=== PATIENT | female | born 1940 | race Caucasian/White ===

== ENCOUNTER → 2018-03-07 11:49 | Outpatient (CLI) | payer MEDICARE, SELFPAY ==
[2018-03-07 12:47] LABS: Add Manual Diff / Slide Review NO; Basophils Percent Auto 0.8 % (0-2); Hematocrit 38.3 % (36-46); Hemoglobin 13.1 g/dL (12.0-16.0); Lymphocytes Percent Auto 9.6 % (25-40); Mean Corpuscular HGB Conc 34.2 % (30-36); Mean Corpuscular Hemoglobin 33.1 PG (26-34); Mean Corpuscular Volume 96.8 fL (80-100); Monocytes Percent Auto 6.6 % (3-14); Neutrophils Absolute Auto 4200 /uL (3000-5900); Platelet Count 122 X10^3/uL (150-400); Red Blood Cell Count 3.96 X10^6/uL (4.0-5.2); Red Cell Distribution Width 13.8 % (11.6-14.8); White Blood Cell Count 5.2 X10^3/uL (4.5-11.0)
[2018-03-07 13:32] LABS: Alanine Aminotransferase 33 IU/L (9-52); Albumin 4.3 g/dL (3.5-5.0); Alkaline Phosphatase 53 U/L (38-126); Aspartate Aminotransferase 27 IU/L (14-36); BUN Creatinine Ratio 27.5 (6-22); Bilirubin Total 1.2 mg/dL (0.2-1.3); Blood Urea Nitrogen 22 mg/dL (7-17); Calcium 9.4 mg/dL (8.4-10.2); Carbon Dioxide 24 mmol/L (22-32); Chloride 107 mmol/L (98-107); Estimated Glomerular Filt Rate > 60.0 mL/min (>60); Globulin 2.2 g/dL (1.7-4.1); Glucose 90 mg/dL (80-110); HEMOLYSIS < 15 (0-50); Potassium 4.3 mmol/L (3.4-5.1); Sodium 143 mmol/L (137-145); Total Protein 6.5 g/dL (6.3-8.2)
[2018-03-07 14:01] LABS: TSH w/ Reflex to FT4 2.61 uIU/mL (0.47-4.68)
== END ==
PROVIDERS: Family Provider Family Medicine; PCP Family Medicine; Visit Provider Family Medicine
DX: E78.00 Pure hypercholesterolemia, unspecified (principal)
CPT/HCPCS: 36415; 80053; 84443; 85025

== ENCOUNTER → 2018-03-20 13:45 | Outpatient (CLI) | payer MEDICARE, SELFPAY ==
--- NOTE | 2018-03-20 13:47 | DI.RAD.S_ITS ---
PROCEDURE: XR HIP W PEL IF DONE LT 2V INDICATIONS: acute left hip pain TECHNIQUE: 3 views of the left hip were acquired. COMPARISON: None. FINDINGS: Bones: No fractures or dislocations. No suspicious bony lesions. The visualized pelvic ring appears intact. Prior bilateral total hip arthroplasties without evidence of device loosening or disruption bilaterally Soft tissues: No suspicious soft tissue calcifications or masses. IMPRESSION: Source of new left-sided hip pain is not seen. Prior bilateral total hip arthroplasties. Chronic degenerative changes along the visualized small portion of the lumbosacral spine included on this study are moderately severe to severe. Dictated by: Prem Mckeon M.D. on 03/20/2018 at 15:03 Approved by: Prem Mckeon M.D. on 03/20/2018 at 15:04
== END ==
PROVIDERS: Family Provider Family Medicine; PCP Family Medicine; Visit Provider Family Medicine
DX: M25.552 Pain in left hip (principal); Z96.643 Presence of artificial hip joint, bilateral; M51.37 Other intervertebral disc degeneration, lumbosacral region
CPT/HCPCS: 73502

== ENCOUNTER → 2018-03-23 16:38 | Outpatient (CLI) | payer MEDICARE, SELFPAY ==
--- NOTE | 2018-03-23 16:42 | DI.MRI.S_ITS ---
PROCEDURE: MR CERVICAL SPINE WO CON INDICATIONS: neck pain and left hand weakness TECHNIQUE: Noncontrast sagittal T1 spin echo and T2 fast spin echo, sagittal STIR, foraminal oblique sagittal T2 fast spin echo, and axial gradient echo or T2 fast spin echo through the cervical spine. COMPARISON: None. FINDINGS: Image quality: Excellent. Alignment and Curvature: There is mild straightening of normal cervical curvature. There is trace anterolisthesis of C3 on C4, C4 on C5-C7 on T1, T1 and T2, T2 on T3, trace retrolisthesis of C5 on C6. Bone Marrow: Marrow demonstrates normal overall signal. Spinal Cord: Visualized spinal cord has normal size and signal. No cerebellar tonsillar herniation. Paraspinous Soft Tissues: No paravertebral masses. Prevertebral soft tissues are normal in thickness. Mucous retention cyst versus followup is present within the left maxillary sinus. Discs: Moderate desiccation is present throughout the cervical spine. C2-C3: Minimal disc bulge without spinal stenosis. Minimal left foraminal narrowing with uncovertebral hypertrophy. C3-C4: Mild disc bulge with minimal spinal stenosis. Moderate left and minimal to mild right foraminal narrowing with uncovertebral hypertrophy. C4-C5: Mild disc bulge mild spinal stenosis. Moderate bilateral foraminal narrowing with uncovertebral hypertrophy. C5-C6: Mild disc bulge with moderate spinal stenosis. Severe left and [id number] right foraminal narrowing with uncovertebral hypertrophy. C6-C7: Mild disc bulge with mild spinal stenosis. Minimal to mild left and mild right foraminal narrowing with uncovertebral hypertrophy. C7-T1: Mild disc bulge with minimal spinal stenosis. Mild bilateral foraminal narrowing with uncovertebral hypertrophy. IMPRESSION: 1. Multilevel disc bulges. 2. Multilevel spinal stenosis, moderate at C5-6 secondary to disc bulge. 3. Multilevel foraminal narrowing severe at C5-6 secondary to uncovertebral arthropathy. Dictated by: Ernestina Fowler M.D. on 03/26/2018 at 8:16 Approved by: Ernestina Fowler M.D. on 03/26/2018 at 8:32
--- NOTE | 2018-03-23 16:42 | DI.MRI.S_ITS ---
PROCEDURE: MR LUMBAR SPINE WO CON INDICATIONS: leg weekness and low back pain TECHNIQUE: Noncontrast sagittal T1 spin echo and T2 fast echo, sagittal STIR, axial T1 and T2 fast spin echo through the lumbar spine. In cases with scoliosis, additional coronal T2 fast spin echo may be performed. COMPARISON: [facility], , L-SPINE WITHOUT CONTRAST, 04/11/2008, 7:53. FINDINGS: Image quality: Excellent. Alignment and Curvature: There is straightening of normal lumbar curvature. There is trace retrolisthesis of L1 on L2, L4 and L5, trace anterolisthesis of L2 on L3. Bone Marrow: Marrow is of normal overall signal. No acute vertebral body compression fractures. Mild reactive changes are present at L2-3. Spinal Cord: Conus medullaris terminates at the L1 level. Visualized cord demonstrates normal signal and size. Paraspinous Soft Tissues: No paravertebral masses. Discs: Severe desiccation is present at T12-L1, L3-4, L4-5, L5-S1, moderate to severe throughout the remainder of the lumbar spine. L1-L2: Mild disc bulge with moderate spinal stenosis. Mild to moderate bilateral foraminal narrowing with facet and ligamentum flavum hypertrophy. L2-L3: Mild disc bulge with mild spinal stenosis. Severe right and mild to moderate left foraminal narrowing with facet and ligamentum flavum hypertrophy. L3-L4: Mild disc bulge with mild to moderate spinal stenosis. Moderate bilateral foraminal narrowing with facet and ligamentum flavum hypertrophy. L4-L5: Mild disc bulge including a right foraminal component which compromises the right lateral recess. There is superior bilateral foraminal narrowing ligamentum hypertrophy. No nerve root flattening. L5-S1: Mild disc bulge with mild spinal stenosis. There is severe bilateral foraminal narrowing, left greater than right with minimal flattening noted on the left. Facet hypertrophy is present. IMPRESSION: 1. Multilevel degenerative changes demonstrate interval progression compared to prior exam. 2. Mild to moderate spinal stenosis most prominent at L1-2 secondary to disc bulge with contributing effect of prominent right facet/ligamentum flavum arthropathy. 3. Significant multilevel foraminal narrowing most severe at L2-3 and L5-S1 with minimal flattening noted at L5-S1. Foraminal narrowing is secondary to facet/ligamentum flavum arthropathy. Dictated by: Ernestina Fowler M.D. on 03/26/2018 at 8:36 Approved by: Ernestina Fowler M.D. on 03/26/2018 at 8:52
== END ==
PROVIDERS: Family Provider Family Medicine; PCP Family Medicine; Visit Provider Family Medicine
DX: R29.898 Other symptoms and signs involving the musculoskeletal system (principal); I73.9 Peripheral vascular disease, unspecified; M54.2 Cervicalgia
CPT/HCPCS: 72141; 72148

== ENCOUNTER → 2020-05-11 12:20 | Outpatient (CLI) | payer MEDICARE, SELFPAY ==
[2020-05-11 13:55] LABS: Add Manual Diff / Slide Review NO; Basophils Absolute Auto 0 /uL (0-100); Basophils Percent Auto 0.7 % (0-2); Eosinophils Absolute Auto 0 /uL (0-450); Eosinophils Percent Auto 0.7 % (2-4); Hematocrit 39.4 % (36-46); Lymphocytes Absolute Auto 500 /uL (1100-4500); Lymphocytes Percent Auto 6.9 % (25-40); Mean Corpuscular HGB Conc 32.9 % (30-36); Mean Corpuscular Hemoglobin 32.1 PG (26-34); Mean Corpuscular Volume 97.6 fL (80-100); Monocytes Absolute Auto 500 /uL (0-900); Neutrophils Absolute Auto 5500 /uL (1500-7000); Neutrophils Percent Auto 84.7 % (50-75); Platelet Count 151 X10^3/uL (150-400); Red Blood Cell Count 4.04 X10^6/uL (4.0-5.2); Red Cell Distribution Width 13.9 % (11.6-14.8); White Blood Cell Count 6.5 X10^3/uL (4.5-11.0)
[2020-05-11 14:14] LABS: Erythrocyte Sedimentation Rate 7 MM/HR (0-20)
[2020-05-11 14:43] LABS: Alanine Aminotransferase 21 IU/L (<35); Albumin 4.7 g/dL (3.5-5.0); Alkaline Phosphatase 61 U/L (38-126); Aspartate Aminotransferase 32 IU/L (14-36); BUN Creatinine Ratio 23.5 (6-22); Bilirubin Total 1.3 mg/dL (0.2-1.3); Blood Urea Nitrogen 19 mg/dL (7-17); Calcium 9.9 mg/dL (8.4-10.2); Carbon Dioxide 26 mmol/L (22-32); Chloride 105 mmol/L (98-107); Estimated Glomerular Filt Rate > 60.0 mL/min (>60); Globulin 2.3 g/dL (1.7-4.1); Glucose 93 mg/dL (80-110); HEMOLYSIS < 15 (0-50); Potassium 4.4 mmol/L (3.4-5.1); Sodium 138 mmol/L (137-145)
[2020-05-11 15:06] LABS: TSH w/ Reflex to FT4 2.95 uIU/mL (0.47-4.68)
[2020-05-11 15:25] LABS: Vitamin B12 916 pg/mL (239-931)
== END ==
PROVIDERS: Family Provider Family Medicine; PCP Family Medicine; Referring Provider Family Medicine; Visit Provider Family Medicine
DX: M48.00 Spinal stenosis, site unspecified (principal); R26.9 Unspecified abnormalities of gait and mobility
CPT/HCPCS: 80053; 82607; 84443; 85025; 85651

== ENCOUNTER → 2020-05-21 10:55 | Outpatient (CLI) | payer MEDICARE, SELFPAY ==
--- NOTE | 2020-05-21 | DI.MRI.S_ITS ---
PROCEDURE: MR HEAD/BRAIN WO/W CON INDICATIONS: Polyneuropathy, unspecified TECHNIQUE: Noncontrast axial T1 spin echo, axial T2 fast spin echo, sagittal and axial FLAIR, coronal T2 fast spin echo, axial gradient echo, axial diffusion and ADC through the brain. After the administration of contrast, axial and coronal T1 spin echo with fat saturation through the brain. COMPARISON: [facility], , STROKE PROTOCOL, 01/04/2013, 13:48. FINDINGS: Image quality: Excellent. CSF spaces: Basal cisterns are patent. No extra-axial fluid collections. Ventricles are enlarged, greater than expected for age, and increased from the prior examination.. Brain: No midline shift. No intracranial bleeds or masses. No abnormal intracranial enhancement. There is cerebral volume loss for age. There is periventricular white matter chronic small vessel ischemic change. The brainstem appears normal. Diffusion-weighted images demonstrate no acute ischemic insults. No chronic ischemic insults. Normal intravascular flow voids are present. Skull and face: Calvarial marrow is normal in signal. Orbits appear normal. Sinuses: Sinuses and mastoids appear clear. IMPRESSION: 1. Volume loss and small vessel ischemic disease. 2. Ventricular enlargement, which is greater than expected for age, and has increased compared to 01/04/2013. Findings may represent communicating hydrocephalus. Nuclear medicine cisternogram could be performed for further assessment, if clinically indicated. 3. No acute process. No recent infarct. Dictated by: Jovita Su M.D. on 05/21/2020 at 11:43 Approved by: Jovita Su M.D. on 05/21/2020 at 11:46
== END ==
PROVIDERS: Family Provider Family Medicine; PCP Family Medicine; Referring Provider Family Medicine; Visit Provider Family Medicine
DX: G62.9 Polyneuropathy, unspecified (principal)
CPT/HCPCS: 70553

== ENCOUNTER 2020-09-14 11:44 | Emergency (ER) | payer MEDICARE, SELFPAY ==
[2020-09-14 11:59] VITALS: BP 174/84; PULSE 78; RESP 15; TEMP 36.4; O2SAT 100; BMI 20.9
== END 2020-09-14 13:08 | disposition left against medical advice (07) ==
PROVIDERS: Emergency Provider Emergency Medicine; Family Provider Family Medicine; PCP Family Medicine
CPT/HCPCS: 99281

== ENCOUNTER → 2020-11-19 10:09 | Outpatient (CLI) | payer MEDICARE, SELFPAY ==
--- NOTE | 2020-11-19 | DI.MRI.S_ITS ---
PROCEDURE: MR LUMBAR SPINE WO CON INDICATIONS: IMPAIRED GAIT AND MOBILITY TECHNIQUE: Noncontrast sagittal T1 spin echo and T2 fast echo, sagittal STIR, axial T1 and T2 fast spin echo through the lumbar spine. In cases with scoliosis, additional coronal T2 fast spin echo may be performed. COMPARISON: [facility], MR, MR LUMBAR SPINE WO CON, 03/23/2018, 17:22. FINDINGS: Image quality: Excellent. Alignment and Curvature: Straightening of the usual lumbar lordosis similar to the prior study. Anterolisthesis of L2 on L3 measuring 5 mm and retrolisthesis of L4 on L5 measuring 3 mm is also unchanged. Vertebral body heights maintained. Bone Marrow: No suspicious focal marrow signal abnormality. Extensive degenerative signal changes along the endplates including mild marrow edema at a few levels, a potential source of nonradicular axial back pain. Spinal Cord: Normal position and appearance of the conus. Regional Soft Tissues: Fatty atrophy of the paraspinous musculature. No acute signal abnormality in the regional soft tissues. T12-L1: Posterior osteophytic ridging and diffuse disc bulge flattens the ventral thecal sac with mild displacement of the descending right L1 nerve roots within the right subarticular zone. Foraminal components of the disc bulge contribute to mild neural foraminal narrowing on the right in conjunction with facet hypertrophy. L1-L2: Diffuse disc bulge and a superimposed broad-based posterior disc protrusion flatten and indent the ventral thecal sac. Disc material displaces the descending L2 nerve roots within both subarticular zones. Foraminal components of the disc bulge contribute to mild bilateral neural foraminal stenosis in conjunction with facet hypertrophy and buckling of the ligamentum flavum. L2-L3: There is moderate spinal canal stenosis due to a combination of diffuse disc bulge, superimposed disc extrusion, posterior osteophytic ridging of the endplates, facet hypertrophy, and buckling of the ligamentum flavum. There is displacement of the descending L3 nerve roots within both subarticular zones. Moderate left and mild right neural foraminal stenosis is present due to these factors. L3-L4: Posterior osteophytic ridging of the endplates flattens the ventral thecal sac. Buckling of the ligamentum flavum and facet hypertrophy further contribute to overall mild spinal canal stenosis. These factors contribute to moderate left and mild right neural foraminal narrowing also. L4-L5: Moderate spinal canal and severe subarticular zone stenosis due to a combination of diffuse disc bulge, superimposed broad-based posterior disc protrusion, posterior osteophytic ridging of the endplates, bulky facet hypertrophy, and buckling of the ligamentum flavum. There is probable impingement of the descending L5 nerve roots within both subarticular zones (series 6, image 27). Foraminal components of the disc bulge contribute to mild-moderate neural foraminal stenosis bilaterally in conjunction with facet hypertrophy. L5-S1: Diffuse disc bulge and a superimposed broad-based posterior disc protrusion, with disc material displacing the descending S1 nerve roots in both subarticular zones. Bulky facet hypertrophy further contributes to moderate to severe subarticular zone stenosis. Left laminotomy changes. Moderate right and moderate-severe left neural foraminal stenosis with flattening of the exiting left L5 nerve root in the foramen. IMPRESSION: Extensive multifactorial multilevel degenerative changes as described above, including areas of moderate to severe subarticular and neural foraminal stenosis with suspected nerve root impingement at multiple locations. Correlate for any corresponding radicular symptoms. Overall, the findings have not mildly progressed at each level when compared with 03/23/2018 exam. Dictated by: Nuno Evans M.D. on 11/19/2020 at 11:17 Approved by: Nuno Evans M.D. on 11/19/2020 at 11:22
== END ==
PROVIDERS: Family Provider Family Medicine; PCP Family Medicine; Referring Provider Psychiatry & Neurology Neurology; Visit Provider Internal Medicine Endocrinology, Diabetes & Metabolism
DX: R26.89 Other abnormalities of gait and mobility (principal); R39.15 Urgency of urination; M47.816 Spondylosis without myelopathy or radiculopathy, lumbar region; M47.817 Spondylosis without myelopathy or radiculopathy, lumbosacral region; M48.061 Spinal stenosis, lumbar region without neurogenic claudication; M48.07 Spinal stenosis, lumbosacral region; Z98.890 Other specified postprocedural states
CPT/HCPCS: 72148

== ENCOUNTER → 2020-11-27 10:52 | Outpatient (CLI) | payer MEDICARE, SELFPAY ==
[2020-11-27 12:07] LABS: Add Manual Diff / Slide Review NO; Basophils Absolute Auto 0 /uL (0-100); Eosinophils Absolute Auto 0 /uL (0-450); Eosinophils Percent Auto 0.6 % (2-4); Hematocrit 37.6 % (36-46); Hemoglobin 12.7 g/dL (12.0-16.0); Lymphocytes Absolute Auto 600 /uL (1100-4500); Mean Corpuscular HGB Conc 33.7 % (30-36); Mean Corpuscular Hemoglobin 32.6 PG (26-34); Mean Corpuscular Volume 96.8 fL (80-100); Monocytes Absolute Auto 400 /uL (0-900); Neutrophils Absolute Auto 4100 /uL (1500-7000); Neutrophils Percent Auto 79.4 % (50-75); Platelet Count 131 X10^3/uL (150-400); Red Blood Cell Count 3.89 X10^6/uL (4.0-5.2); Red Cell Distribution Width 13.4 % (11.6-14.8); White Blood Cell Count 5.2 X10^3/uL (4.5-11.0)
== END ==
PROVIDERS: Family Provider Family Medicine; PCP Family Medicine; Referring Provider Family Medicine; Visit Provider Family Medicine
DX: D72.9 Disorder of white blood cells, unspecified (principal)
CPT/HCPCS: 36415; 85025

== ENCOUNTER → 2020-12-21 07:49 | Outpatient (CLI) | payer MEDICARE, SELFPAY ==
--- NOTE | 2020-12-21 07:51 | DI.US.S_ITS ---
PROCEDURE: US ABDOMEN COMPLETE INDICATIONS: IMMUNE THROMBOCYTOPENIA PURPURA TECHNIQUE: Real-time scanning was performed of the abdominal and retroperitoneal organs, with image documentation. COMPARISON: CT, ABDOMEN/PELVIS WITH CONTRAST, 10/01/2010, 18:21. CT, ABDOMEN/PELVIS WITH CONTRAST, 12/27/2010, 12:23. FINDINGS: Liver: Liver is normal in size and homogeneous in echotexture. Gallbladder: No gallstones identified. Normal gallbladder wall. No pericholecystic fluid. Negative sonographic Jackson sign. Biliary ducts: Intrahepatic bile ducts are non-dilated. Extrahepatic bile duct caliber measures 3.8 mm. Normal is 6-7 mm or less in diameter, or 10 mm or less post-cholecystectomy. Pancreas: Visualized portions of the pancreas are sonographically normal. Spleen: Spleen is normal in size and homogeneous in echotexture. Kidneys: Kidneys are normal in size and echotexture. Right kidney measures 9.7 cm long; left kidney measures 10 cm long. No hydronephrosis or nephrolithiasis. Solitary, rounded echogenic mass involves the mid pole of the right kidney measuring 10 mm. Aorta: Visualized aorta is normal in caliber at less than 3 cm. Iliacs: Proximal common iliac arteries are normal in caliber at less than 2.5 cm. IVC: Intrahepatic inferior vena cava is patent. Miscellaneous: No free abdominal fluid. IMPRESSION: 1. No source for Immune thrombocytopenia identified. 2. 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 Dictated by: Dusty Smith A Interpreted: Prem Mckeon MD on 12/21/2020 at 9:01 Transcribed by: ORLY on 12/21/2020 at 9:21 Approved by: Prem Mckeon M.D. on 12/21/2020 at 10:57
== END ==
PROVIDERS: Family Provider Family Medicine; PCP Family Medicine; Referring Provider Hospitalist; Visit Provider Hospitalist
DX: D69.3 Immune thrombocytopenic purpura (principal)
CPT/HCPCS: 76700

== ENCOUNTER → 2020-12-24 12:47 | Outpatient (CLI) | payer MEDICARE, SELFPAY ==
[2020-12-24 13:43] LABS: Platelet Count 96 X10^3/uL (150-400)
[2020-12-24 14:00] LABS: Add Manual Diff / Slide Review NO; Basophils Absolute Auto 0 /uL (0-100); Basophils Percent Auto 0.7 % (0-2); Eosinophils Absolute Auto 0 /uL (0-450); Eosinophils Percent Auto 0.4 % (2-4); Hematocrit 39.5 % (36-46); Hemoglobin 13.3 g/dL (12.0-16.0); Lymphocytes Absolute Auto 600 /uL (1100-4500); Lymphocytes Percent Auto 11.2 % (25-40); Mean Corpuscular HGB Conc 33.5 % (30-36); Mean Corpuscular Hemoglobin 32.8 PG (26-34); Mean Corpuscular Volume 97.7 fL (80-100); Monocytes Absolute Auto 400 /uL (0-900); Monocytes Percent Auto 7.7 % (3-14); Neutrophils Absolute Auto 4500 /uL (1500-7000); Platelet Count 115 X10^3/uL (150-400); Red Blood Cell Count 4.05 X10^6/uL (4.0-5.2); Red Cell Distribution Width 13.9 % (11.6-14.8); White Blood Cell Count 5.6 X10^3/uL (4.5-11.0)
[2020-12-24 16:48] LABS: HIV 1 & 2 Ab/Ag 4th Gen Combo NEGATIVE (NEGATIVE); Hep C Virus Ab w/Reflex Quant NEGATIVE s/c (NEGATIVE)
[2020-12-26 11:10] LABS: Factor VIII Activity, Clotting 161 % (56-140); Von Willebrand Factor Antigen 141 % (50-200)
[2020-12-29 15:08] LABS: Miscellaneous to LabCorp SEE COMMENTS
== END ==
PROVIDERS: Family Provider Family Medicine; PCP Family Medicine; Referring Provider Hospitalist; Visit Provider Hospitalist
DX: D69.3 Immune thrombocytopenic purpura (principal)
CPT/HCPCS: 36415; 85025; 85049; 85055; 85240; 85246; 86803; 87389

== ENCOUNTER → 2021-01-07 10:47 | Outpatient (CLI) | payer MEDICARE, SELFPAY ==
[2021-01-07 12:02] LABS: Add Manual Diff / Slide Review NO; Basophils Absolute Auto 100 /uL (0-100); Eosinophils Absolute Auto 100 /uL (0-450); Hematocrit 38.6 % (36-46); Lymphocytes Absolute Auto 600 /uL (1100-4500); Lymphocytes Percent Auto 12.6 % (25-40); Mean Corpuscular HGB Conc 33.7 % (30-36); Mean Corpuscular Hemoglobin 32.6 PG (26-34); Mean Corpuscular Volume 96.8 fL (80-100); Monocytes Absolute Auto 400 /uL (0-900); Monocytes Percent Auto 7.3 % (3-14); Neutrophils Absolute Auto 3900 /uL (1500-7000); Neutrophils Percent Auto 78.1 % (50-75); Platelet Count 152 X10^3/uL (150-400); Red Blood Cell Count 3.99 X10^6/uL (4.0-5.2); Red Cell Distribution Width 13.8 % (11.6-14.8)
== END ==
PROVIDERS: Family Provider Family Medicine; PCP Family Medicine; Referring Provider Hospitalist; Visit Provider Hospitalist
DX: D69.3 Immune thrombocytopenic purpura (principal); L08.9 Local infection of the skin and subcutaneous tissue, unspecified; T14.8XXA Other injury of unspecified body region, initial encounter
CPT/HCPCS: 36415; 85025

== ENCOUNTER → 2021-06-08 11:54 | Outpatient (CLI) | payer MEDICARE, SELFPAY ==
[2021-06-08 14:45] LABS: Appearance Urine UA CLEAR; Bilirubin Urine UA NEGATIVE (NEGATIVE); Color Urine UA YELLOW; Glucose Urine UA NEGATIVE (Negative); Ketones Urine UA NEGATIVE (NEGATIVE); Leukocyte Esterase Urine UA NEGATIVE (NEGATIVE); Nitrite Urine UA NEGATIVE (Negative); Occult Blood Urine UA 1+ (Negative); Protein Urine UA NEGATIVE (Negative); Specific Gravity Urine UA <=1.005 (1.000-1.035); Urobilinogen Urine UA 0.2 E.U./dL (0.2)
[2021-06-08 14:47] LABS: pH Urine UA 6.5 (4.5-8.0)
[2021-06-08 14:56] LABS: Bacteria Urine Moderate (10-30); Culture Indicated Urine Specimen Cultured; RBC Urine None Seen (0-5/HPF); Squamous Epithelial Cell Urine 1-5 /HPF (0-5/HPF); WBC Urine 1-5/HPF (0-5/HPF)
== END ==
PROVIDERS: Family Provider Family Medicine; PCP Family Medicine; Visit Provider Physician Assistant
DX: R31.9 Hematuria, unspecified (principal)
CPT/HCPCS: 81001; 87086

== ENCOUNTER → 2021-06-24 11:25 | Outpatient (CLI) | payer MEDICARE, SELFPAY ==
[2021-06-24 12:51] LABS: Add Manual Diff / Slide Review NO; Basophils Absolute Auto 100 /uL (0-100); Basophils Percent Auto 1.2 % (0-2); Eosinophils Absolute Auto 100 /uL (0-450); Eosinophils Percent Auto 1.6 % (2-4); Hemoglobin 12.9 g/dL (12.0-16.0); Lymphocytes Absolute Auto 600 /uL (1100-4500); Lymphocytes Percent Auto 11.3 % (25-40); Mean Corpuscular HGB Conc 33.9 % (30-36); Mean Corpuscular Hemoglobin 31.6 PG (26-34); Mean Corpuscular Volume 93.3 fL (80-100); Monocytes Absolute Auto 400 /uL (0-900); Monocytes Percent Auto 7.6 % (3-14); Neutrophils Absolute Auto 4000 /uL (1500-7000); Neutrophils Percent Auto 78.3 % (50-75); Platelet Count 152 X10^3/uL (150-400); Red Blood Cell Count 4.07 X10^6/uL (4.0-5.2); Red Cell Distribution Width 13.9 % (11.6-14.8); White Blood Cell Count 5.1 X10^3/uL (4.5-11.0)
== END ==
PROVIDERS: Family Provider Family Medicine; PCP Family Medicine; Referring Provider Internal Medicine Hematology; Visit Provider Internal Medicine Hematology
DX: D69.3 Immune thrombocytopenic purpura (principal)
CPT/HCPCS: 36415; 85025

== ENCOUNTER → 2021-08-16 10:40 | Outpatient (CLI) | payer MEDICARE, SELFPAY ==
[2021-08-16 14:09] LABS: COVID19 -Nasal RAPID Negative (Negative)
== END ==
PROVIDERS: Family Provider Family Medicine; PCP Family Medicine; Visit Provider Physical Medicine & Rehabilitation
DX: Z20.822 Contact with and (suspected) exposure to COVID-19 (principal)
CPT/HCPCS: 87635; C9803

== ENCOUNTER 2021-08-17 08:07 | Day surgery (SDC) | payer MEDICARE, SELFPAY ==
[2021-08-17 09:15] VITALS: BP 118/55; PULSE 74; RESP 18; TEMP 37.1; O2SAT 98
[2021-08-17] MEDS: PROPARACAINE 0.5% OPHTH SOL 2 DROPS EYE-OP (09:34)
[2021-08-17] MEDS: CATARACT EYE COMPOUND (10 DROPS/SYRINGE) 3 DROPS EYE-OP (09:35)
[2021-08-17 09:36] VITALS: BMI 20.8
--- NOTE | 2021-08-17 10:20 | P.OP_ITS ---
Operative Date/Time/Diagnoses Pre-op diagnosis: Nuclear Cataract Left eye Post-op diagnosis: same Procedure & Clinicians Same procedure as scheduled: Yes Surgeon: Angel Khan Anesthesia Type: MAC +/- and Sedation Operative Notes Procedure in detail: Patient brought to the operating suite. Tetracaine drops placed in the left eye. Marking instrument was used to abilio the vertical and horizontal meridians. Patient was prepped and draped in sterile manner. Wire lid speculum was placed in the eye. marking instrument was used to abilio the 170 degree meridian. Beta dine drops were placed on the eye. This was irrigated. Lidocaine jelly was placed on the eye. A paracentesis port was created with a side-port blade. 0.1 mL 1% preservative free lidocaine was injected into the anterior chamber. The anterior chamber was deepened with viscoelastic. 2.6 mm keratome was used to create a temporal clear corneal incision. The pupil was floppy and miotic. A 6.25mm Malyugin ring was used to enlarge the pupil. Cystotome and Utrata forceps were used to create continuous tear capsulorrhexis. Balanced salt solution was used to hydro dissect the nucleus. The phacoemulsification handpiece was inserted and the nucleus was removed using the stop and chop technique. The irrigation aspiration handpiece was inserted and the remaining cortex was removed. Anterior chamber was deepened with viscoelastic. An Pantoja [id number] intraocular lens with a power of 23.0 was injected into the capsular bag. The Malyugin ring was removed. Irrigation aspiration handpiece was inserted and the remaining viscoelastic was removed. The lens was rotated to the 170 degree meridian. Incision was hydrated with balanced salt solution and found to be leak free with pressure with Weck-Marti sponges. 0.1 mL Vigamox injected anterior chamber. 0.3 mL Kenalog 10 mg was injected subconjunctivally. Lid speculum was removed. The patient left the operating room in excellent condition. Complications: none Post-operative Condition: stable Disposition: same day surgery
--- NOTE | 2021-08-17 10:20 | PM.PREOP ---
Pre-operative Note Interval Note History & Physical reviewed/Exam performed by Physician: Yes Changes to H&P: No
[2021-08-17] MEDS: HYALURONATE SODIUM 30 MG-10 MG/ML SYRINGES 1 BOX INTRAOCULA (10:46)
[2021-08-17] MEDS: MOXIFLOXACIN INJ 4 MG/0.8 ML VIAL 0.5 MG EYE-OP (10:46)
[2021-08-17] MEDS: BALANCED SALT IRRIG SOLN NO.2 500 ML, EPINEPHrine 1 MG IRR (10:46)
[2021-08-17] MEDS: PHENYLEPHRINE/LIDOCAINE VIAL (OR) 0.2 ML EYE-OP (10:46)
[2021-08-17] MEDS: TRIAMCINOLONE 50 MG/5 ML VIAL INJ (10:46)
[2021-08-17] MEDS: LIDOCAINE 2% (GLYDO) 6 ML GEL TOP (10:47)
[2021-08-17] MEDS: TETRACAINE 0.5% OPHTH DROPS 4 ML 2 DROPS EYE-OP (10:47)
[2021-08-17 11:10] VITALS: BP 130/65; PULSE 74; RESP 14; TEMP 36.4; O2SAT 99
== END 2021-08-17 11:18 | disposition home or self-care (01) ==
PROVIDERS: Family Provider Family Medicine; PCP Family Medicine; Referring Provider Ophthalmology; Visit Provider Ophthalmology
PROC: (CPT 66984; principal; 2021-08-17 10:15)
DX: H25.12 Age-related nuclear cataract, left eye (principal)
CPT/HCPCS: 66984; J0171; J2250; J3010; J3301; V2787

== ENCOUNTER → 2021-08-25 12:33 | Outpatient (CLI) | payer MEDICARE, SELFPAY ==
--- NOTE | 2021-08-25 12:36 | DI.RAD.S_ITS ---
PROCEDURE: XR KNEE LT 3V INDICATIONS: knee pain and instability TECHNIQUE: 3 views of the knee were acquired. COMPARISON: [facility], , KNEE 3V LEFT, 06/11/2014, 11:52. FINDINGS: Bones: No fractures or dislocations. 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 No patellar subluxation. No suspicious bony lesions. Soft tissues: No joint effusion. Chondrocalcinosis in medial and lateral femoral tibial compartments are seen. 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 Medial and lateral femoral tibial compartment chondrocalcinosis. No fracture or dislocation. No joint effusion. Dictated by: Arvind Jara M.D. on 08/25/2021 at 13:36 Approved by: Arvind Jara M.D. on 08/25/2021 at 13:52
== END ==
PROVIDERS: Family Provider Family Medicine; PCP Family Medicine; Referring Provider Family Medicine; Visit Provider Family Medicine
DX: M25.562 Pain in left knee (principal); M16.12 Unilateral primary osteoarthritis, left hip
CPT/HCPCS: 73562

== ENCOUNTER → 2021-08-30 11:04 | Outpatient (CLI) | payer MEDICARE, SELFPAY ==
[2021-08-30 14:02] LABS: COVID19 -Nasal RAPID Negative (Negative)
== END ==
PROVIDERS: Family Provider Family Medicine; PCP Family Medicine; Visit Provider Family Medicine Sleep Medicine
DX: Z20.822 Contact with and (suspected) exposure to COVID-19 (principal)
CPT/HCPCS: 87635; C9803

== ENCOUNTER 2021-08-31 08:10 | Day surgery (SDC) | payer MEDICARE, SELFPAY ==
[2021-08-31] MEDS: PROPARACAINE 0.5% OPHTH SOL 2 DROPS EYE-OP (09:30)
[2021-08-31] MEDS: CATARACT EYE COMPOUND (10 DROPS/SYRINGE) 3 DROPS EYE-OP (09:31)
[2021-08-31 09:38] VITALS: BP 138/62; PULSE 84; RESP 18; TEMP 36.6; O2SAT 99; BMI 20.8
--- NOTE | 2021-08-31 10:13 | SUR.OPER ---
Supine on eye stretcher, head on extension cradle secured with tape. Arms tucked at sides with blanket. Pillow under knees.
--- NOTE | 2021-08-31 10:18 | PM.PREOP ---
Pre-operative Note Interval Note History & Physical reviewed/Exam performed by Physician: Yes Changes to H&P: No
--- NOTE | 2021-08-31 10:18 | PM.OP.1 ---
Operative Date/Time/Diagnoses Pre-op diagnosis: Nuclear cataract right eye Procedure & Clinicians Procedure: Cataract Surgery Same procedure as scheduled: Yes Surgeon: Angel Khan Anesthesia Type: MAC +/- and Sedation Operative Notes Procedure in detail: Patient brought to the operating suite. Tetracaine drops placed in the right eye. Marking instrument was used to abilio the vertical and horizontal meridians. Patient was prepped and draped in sterile manner. Wire lid speculum was placed in the eye. Marking instrument was used to abilio the 10 degree meridian. Betadine drops were placed on the eye. This was irrigated. Lidocaine jelly was placed on the eye. A paracentesis port was created with a side-port blade. 0.1 mL 1% preservative free lidocaine was injected into the anterior chamber. The anterior chamber was deepened with viscoelastic. 2.6 mm keratome was used to create a temporal clear corneal incision. The pupil was floppy and miotic. A 6.25 mm Malyugin ring was used to enlarge the pupil. Cystotome and Utrata forceps were used to create continuous tear capsulorrhexis. Balanced salt solution was used to hydro dissect the nucleus. The phacoemulsification handpiece was inserted and the nucleus was removed using the stop and chop technique. The irrigation aspiration handpiece was inserted and the remaining cortex was removed. Anterior chamber was deepened with viscoelastic. An Pantoja [id number] intraocular lens with a power of 23.0 was injected into the capsular bag. The malyugin ring was removed. Irrigation aspiration handpiece was inserted and the remaining viscoelastic was removed.The lens was rotated to the 10 degree meridian. Incision was hydrated with balanced salt solution and found to be leak free with pressure with Weck-Mrati sponges. 0.1 mL Vigamox injected anterior chamber. 0.3 mL Kenalog 10 mg was injected subconjunctivally. Lid speculum was removed. The patient left the operating room in excellent condition. Complications: none Post-operative Condition: stable Disposition: same day surgery
[2021-08-31] MEDS: MOXIFLOXACIN INJ 4 MG/0.8 ML VIAL 0.5 MG EYE-OP (10:40)
[2021-08-31] MEDS: HYALURONATE SODIUM 30 MG-10 MG/ML SYRINGES 1 BOX INTRAOCULA (10:40)
[2021-08-31] MEDS: BALANCED SALT IRRIG SOLN NO.2 500 ML, EPINEPHrine 1 MG IRR (10:41)
[2021-08-31] MEDS: TRIAMCINOLONE 50 MG/5 ML VIAL INJ (10:41)
[2021-08-31] MEDS: PHENYLEPHRINE/LIDOCAINE VIAL (OR) 0.2 ML EYE-OP (10:41)
[2021-08-31] MEDS: TETRACAINE 0.5% OPHTH DROPS 4 ML 2 DROPS EYE-OP (10:42)
[2021-08-31] MEDS: LIDOCAINE 2% (GLYDO) 6 ML GEL TOP (10:42)
[2021-08-31 11:01] VITALS: BP 113/75; PULSE 73; RESP 16; TEMP 36.9; O2SAT 98
== END 2021-08-31 11:22 | disposition home or self-care (01) ==
PROVIDERS: Family Provider Family Medicine; PCP Family Medicine; Referring Provider Ophthalmology; Visit Provider Ophthalmology
PROC: (CPT 66984; principal; 2021-08-31 10:15)
DX: H25.11 Age-related nuclear cataract, right eye (principal); I10 Essential (primary) hypertension
CPT/HCPCS: 66984; J0171; J2250; J3010; J3301; V2787

== ENCOUNTER → 2021-11-12 10:17 | Outpatient (CLI) | payer MEDICARE, SELFPAY ==
[2021-11-12 11:10] LABS: COVID19 -Nasal RAPID Negative (Negative)
== END ==
PROVIDERS: Family Provider Family Medicine; PCP Family Medicine; Visit Provider Psychiatry & Neurology Neurology
DX: Z20.822 Contact with and (suspected) exposure to COVID-19 (principal)
CPT/HCPCS: 87635; C9803

== ENCOUNTER → 2021-12-01 12:46 | Outpatient (CLI) | payer MEDICARE, SELFPAY ==
--- NOTE | 2021-12-01 | DI.CT.S_ITS ---
PROCEDURE: CT HEAD/BRAIN WO CON INDICATIONS: Hydrocephalus, unspecified TECHNIQUE: Noncontrast 4.5 mm thick angled axial sections acquired from the foramen magnum to the vertex, with coronal and sagittal reformats. For radiation dose reduction, the following was used: automated exposure control, adjustment of mA and/or kV according to patient size. COMPARISON: [facility], MR, MR HEAD/BRAIN WO/W CON, 05/21/2020, 11:05. FINDINGS: Image quality: Excellent. CSF spaces: Ventriculomegaly. Biventricular diameter measures 1.15 cm, previously 5.09 cm, previously 5.09 cm. No evidence of transependymal migration of CSF. There is a right parietal approach ventriculostomy in good position. Prior right and left frontal aldo holes with gliotic tracks reflect prior ventriculostomy. Generalized atrophy chronic ischemic change noted as well. Brain: No midline shift. No intracranial masses or hemorrhage. Kennedy-white matter interface is normal. Skull and face: Calvarium and visualized facial bones are intact, without suspicious lesions. Sinuses: Visualized sinuses and mastoids are clear. IMPRESSION: 1. Shunted ventriculomegaly, stable from the prior. 2. Atrophy and chronic ischemic change without acute hemorrhage or mass effect. Approved by: Capo Kumar M.D. on 12/01/2021 at 16:16
== END ==
PROVIDERS: Family Provider Family Medicine; PCP Family Medicine; Referring Provider Physician Assistant; Visit Provider Physician Assistant
DX: G91.2 (Idiopathic) normal pressure hydrocephalus (principal); G91.9 Hydrocephalus, unspecified; G93.89 Other specified disorders of brain
CPT/HCPCS: 70450

== ENCOUNTER → 2022-03-16 10:42 | Outpatient (CLI) | payer MEDICARE, SELFPAY ==
--- NOTE | 2022-03-16 | DI.CT.S_ITS ---
PROCEDURE: CT HEAD/BRAIN WO CON INDICATIONS: (Idiopathic) normal pressure hydrocephalus TECHNIQUE: Noncontrast 4.5 mm thick angled axial sections acquired from the foramen magnum to the vertex, with coronal and sagittal reformats. For radiation dose reduction, the following was used: automated exposure control, adjustment of mA and/or kV according to patient size. COMPARISON: [facility], MR, MR HEAD/BRAIN WO/W CON, 05/21/2020, 11:05. [facility], CT, CT HEAD/BRAIN WO CON, 12/01/2021, 13:00. FINDINGS: Image quality: Excellent. CSF spaces: Basal cisterns are patent. No extra-axial fluid collections. There is a right parietal approach ventriculostomy catheter, with the tip seen within the anterior aspect of the 3rd ventricle, near the midline, stable. The ventricles are mildly enlarged, yet stable in size and shape. Brain: No intracranial bleeds or masses. There is cerebral volume loss for age, with resultant ventricular and sulcal prominence. There are periventricular and deep white matter chronic small vessel ischemic changes. There is intracranial internal carotid artery atherosclerosis. Skull and face: Calvarium and visualized facial bones appear intact, without suspicious lesions. A aldo hole can be seen anteriorly, as well as a aldo hole accompanying the right parietal approach ventriculostomy catheter. Sinuses: Visualized sinuses and mastoids are clear. IMPRESSION: Stable right parietal approach ventriculostomy catheter. Stable lateral ventricles. Dictated by: Abraham Woods M.D. on 03/16/2022 at 10:19 Approved by: Abraham Woods M.D. on 03/16/2022 at 10:21
== END ==
PROVIDERS: Family Provider Family Medicine; PCP Family Medicine; Referring Provider Psychiatry & Neurology Neurology; Visit Provider Internal Medicine Endocrinology, Diabetes & Metabolism
DX: G91.2 (Idiopathic) normal pressure hydrocephalus (principal); Z98.2 Presence of cerebrospinal fluid drainage device
CPT/HCPCS: 70450

== ENCOUNTER → 2022-06-07 10:44 | Outpatient (CLI) | payer MEDICARE, SELFPAY | PROVIDERS: Family Provider Family Medicine; PCP Family Medicine; Visit Provider Surgery | DX: S81.811A Laceration without foreign body, right lower leg, initial encounter (principal); S81.802A Unspecified open wound, left lower leg, initial encounter; R60.0 Localized edema | CPT/HCPCS: 11042; 87070; 87075; 87077; 87205; 99203; 99214 ==

== ENCOUNTER → 2022-06-13 09:29 | Outpatient (CLI) | payer MEDICARE, SELFPAY ==
[2022-06-13 11:17] LABS: Add Manual Diff / Slide Review NO; Basophils Absolute Auto 100 /uL (0-100); Basophils Percent Auto 1.1 % (0-2); Eosinophils Absolute Auto 100 /uL (0-450); Eosinophils Percent Auto 2.3 % (2-4); Hematocrit 37.1 % (36-46); Hemoglobin 12.5 g/dL (12.0-16.0); Lymphocytes Absolute Auto 600 /uL (1100-4500); Lymphocytes Percent Auto 10.1 % (25-40); Mean Corpuscular HGB Conc 33.6 % (30-36); Mean Corpuscular Hemoglobin 32.4 PG (26-34); Mean Corpuscular Volume 96.5 fL (80-100); Monocytes Absolute Auto 400 /uL (0-900); Monocytes Percent Auto 7.6 % (3-14); Neutrophils Absolute Auto 4600 /uL (1500-7000); Neutrophils Percent Auto 78.9 % (50-75); Platelet Count 159 X10^3/uL (150-400); Red Blood Cell Count 3.84 X10^6/uL (4.0-5.2); Red Cell Distribution Width 14.2 % (11.6-14.8); White Blood Cell Count 5.9 X10^3/uL (4.5-11.0)
[2022-06-13 11:24] LABS: Alanine Aminotransferase 20 IU/L (<35); Albumin 4.1 g/dL (3.5-5.0); Albumin Globulin Ratio 1.6 (1.0-2.8); Alkaline Phosphatase 71 U/L (38-126); Aspartate Aminotransferase 26 IU/L (14-36); BUN Creatinine Ratio 32.4 (6-22); Bilirubin Total 0.8 mg/dL (0.2-1.3); Blood Urea Nitrogen 24 mg/dL (7-17); Calcium 8.7 mg/dL (8.4-10.2); Carbon Dioxide 23 mmol/L (22-32); Chloride 109 mmol/L (98-107); Estimated Glomerular Filt Rate > 60 mL/min (>60); Globulin 2.5 g/dL (1.7-4.1); Glucose 100 mg/dL (80-110); HEMOLYSIS < 15 (0-50); Potassium 4.2 mmol/L (3.4-5.1); Sodium 139 mmol/L (137-145); Total Protein 6.6 g/dL (6.3-8.2)
== END ==
PROVIDERS: Family Provider Family Medicine; PCP Family Medicine; Referring Provider Surgery; Visit Provider Surgery
DX: L08.9 Local infection of the skin and subcutaneous tissue, unspecified (principal)
CPT/HCPCS: 36415; 80053; 85025

== ENCOUNTER → 2022-06-13 10:34 | Outpatient (CLI) | payer MEDICARE, SELFPAY | PROVIDERS: Family Provider Family Medicine; PCP Family Medicine; Referring Provider Family Medicine; Visit Provider Surgery | DX: L08.9 Local infection of the skin and subcutaneous tissue, unspecified (principal); S81.811A Laceration without foreign body, right lower leg, initial encounter; S81.802A Unspecified open wound, left lower leg, initial encounter; R60.0 Localized edema; L53.9 Erythematous condition, unspecified | CPT/HCPCS: 11043; 36415; 80053; 85025 ==

== ENCOUNTER → 2022-06-20 13:57 | Outpatient (CLI) | payer MEDICARE, SELFPAY | PROVIDERS: Family Provider Family Medicine; PCP Family Medicine; Referring Provider Family Medicine; Visit Provider Surgery | DX: S81.801A Unspecified open wound, right lower leg, initial encounter (principal); S81.802A Unspecified open wound, left lower leg, initial encounter | CPT/HCPCS: 99213 ==

== ENCOUNTER → 2022-07-04 11:21 | Outpatient (CLI) | payer MEDICARE, SELFPAY | PROVIDERS: Family Provider Family Medicine; PCP Family Medicine; Referring Provider Family Medicine; Visit Provider Surgery | DX: S81.801A Unspecified open wound, right lower leg, initial encounter (principal); S81.802A Unspecified open wound, left lower leg, initial encounter; R60.0 Localized edema | CPT/HCPCS: 87070; 87205; 99213; 99214 ==

== ENCOUNTER → 2022-07-11 11:14 | Outpatient (CLI) | payer MEDICARE, SELFPAY | PROVIDERS: Family Provider Family Medicine; PCP Family Medicine; Referring Provider Family Medicine; Visit Provider Surgery | DX: S81.811A Laceration without foreign body, right lower leg, initial encounter (principal); S81.802A Unspecified open wound, left lower leg, initial encounter; R60.0 Localized edema | CPT/HCPCS: 97597 ==

== ENCOUNTER → 2022-07-18 13:14 | Outpatient (CLI) | payer MEDICARE, SELFPAY | PROVIDERS: Family Provider Family Medicine; PCP Family Medicine; Referring Provider Family Medicine; Visit Provider Surgery | DX: S81.811A Laceration without foreign body, right lower leg, initial encounter (principal); S81.802A Unspecified open wound, left lower leg, initial encounter; R60.0 Localized edema | CPT/HCPCS: 15271; 97597; Q4196 ==

== ENCOUNTER → 2022-07-25 10:12 | Outpatient (CLI) | payer MEDICARE, SELFPAY | PROVIDERS: Family Provider Family Medicine; PCP Family Medicine; Referring Provider Family Medicine; Visit Provider Surgery | DX: S81.811A Laceration without foreign body, right lower leg, initial encounter (principal); S81.802A Unspecified open wound, left lower leg, initial encounter; R60.0 Localized edema | CPT/HCPCS: 11042; 87070; 87075; 87147; 87205; 97597; 99213 ==

== ENCOUNTER → 2022-07-29 16:07 | Outpatient (CLI) | payer MEDICARE, SELFPAY | PROVIDERS: Family Provider Family Medicine; PCP Family Medicine; Referring Provider Family Medicine; Visit Provider Nurse Practitioner Family | DX: S81.811A Laceration without foreign body, right lower leg, initial encounter (principal); S81.802A Unspecified open wound, left lower leg, initial encounter; S81.011A Laceration without foreign body, right knee, initial encounter; S81.001A Unspecified open wound, right knee, initial encounter; S51.011A Laceration without foreign body of right elbow, initial encounter | CPT/HCPCS: 11042; 11045; 99214 ==

== ENCOUNTER → 2022-08-01 10:17 | Outpatient (CLI) | payer MEDICARE, SELFPAY | PROVIDERS: Family Provider Family Medicine; PCP Family Medicine; Referring Provider Family Medicine; Visit Provider Surgery | DX: S81.811A Laceration without foreign body, right lower leg, initial encounter (principal); S81.802A Unspecified open wound, left lower leg, initial encounter; S81.011A Laceration without foreign body, right knee, initial encounter; S51.011A Laceration without foreign body of right elbow, initial encounter | CPT/HCPCS: 97597; 97598; 99213 ==

== ENCOUNTER → 2022-08-08 10:15 | Outpatient (CLI) | payer MEDICARE, SELFPAY | PROVIDERS: Family Provider Family Medicine; PCP Family Medicine; Referring Provider Family Medicine; Visit Provider Surgery | DX: S81.811A Laceration without foreign body, right lower leg, initial encounter (principal); S81.802A Unspecified open wound, left lower leg, initial encounter; S81.011A Laceration without foreign body, right knee, initial encounter; S81.001A Unspecified open wound, right knee, initial encounter; S51.012A Laceration without foreign body of left elbow, initial encounter | CPT/HCPCS: 97597 ==

== ENCOUNTER → 2022-08-15 10:47 | Outpatient (CLI) | payer MEDICARE, SELFPAY | PROVIDERS: Family Provider Family Medicine; PCP Family Medicine; Referring Provider Family Medicine; Visit Provider Surgery | DX: S81.811A Laceration without foreign body, right lower leg, initial encounter (principal); S81.802A Unspecified open wound, left lower leg, initial encounter; S81.011A Laceration without foreign body, right knee, initial encounter; S51.011A Laceration without foreign body of right elbow, initial encounter; S81.001A Unspecified open wound, right knee, initial encounter | CPT/HCPCS: 97597; 99213 ==

== ENCOUNTER → 2022-08-25 08:41 | Outpatient (CLI) | payer MEDICARE, SELFPAY | PROVIDERS: Family Provider Family Medicine; PCP Family Medicine; Referring Provider Family Medicine; Visit Provider Surgery | DX: S81.811A Laceration without foreign body, right lower leg, initial encounter (principal); S81.802A Unspecified open wound, left lower leg, initial encounter; S81.011A Laceration without foreign body, right knee, initial encounter; S51.011A Laceration without foreign body of right elbow, initial encounter | CPT/HCPCS: 17250; 97597 ==

== ENCOUNTER → 2022-09-01 10:32 | Outpatient (CLI) | payer MEDICARE, SELFPAY | PROVIDERS: Family Provider Family Medicine; PCP Family Medicine; Referring Provider Family Medicine; Visit Provider Surgery | DX: S81.811A Laceration without foreign body, right lower leg, initial encounter (principal); S81.812A Laceration without foreign body, left lower leg, initial encounter; S81.011A Laceration without foreign body, right knee, initial encounter; S51.011A Laceration without foreign body of right elbow, initial encounter; R60.0 Localized edema | CPT/HCPCS: 97597; 99212; 99213 ==

== ENCOUNTER → 2022-09-07 11:09 | Outpatient (CLI) | payer MEDICARE, SELFPAY | PROVIDERS: Family Provider Family Medicine; PCP Family Medicine; Referring Provider Family Medicine; Visit Provider Nurse Practitioner Family | DX: S81.801D Unspecified open wound, right lower leg, subsequent encounter (principal); S81.802D Unspecified open wound, left lower leg, subsequent encounter; S51.011D Laceration without foreign body of right elbow, subsequent encounter | CPT/HCPCS: 11042; 99212; 99213 ==

== ENCOUNTER → 2022-09-15 10:34 | Outpatient (CLI) | payer MEDICARE, SELFPAY | PROVIDERS: Family Provider Family Medicine; PCP Family Medicine; Referring Provider Family Medicine; Visit Provider Surgery | DX: S81.811A Laceration without foreign body, right lower leg, initial encounter (principal); S81.802A Unspecified open wound, left lower leg, initial encounter; M25.572 Pain in left ankle and joints of left foot | CPT/HCPCS: 99213; 99214 ==

== ENCOUNTER → 2022-09-29 10:34 | Outpatient (CLI) | payer MEDICARE, SELFPAY | PROVIDERS: Family Provider Family Medicine; PCP Family Medicine; Referring Provider Family Medicine; Visit Provider Surgery | DX: S81.811A Laceration without foreign body, right lower leg, initial encounter (principal); S81.802A Unspecified open wound, left lower leg, initial encounter; R60.0 Localized edema | CPT/HCPCS: 99213 ==

== ENCOUNTER → 2022-10-13 10:47 | Outpatient (CLI) | payer MEDICARE, SELFPAY | PROVIDERS: Family Provider Family Medicine; PCP Family Medicine; Referring Provider Family Medicine; Visit Provider Surgery | DX: S81.802D Unspecified open wound, left lower leg, subsequent encounter (principal); R60.0 Localized edema | CPT/HCPCS: 99212; 99213 ==

== ENCOUNTER → 2023-04-18 11:55 | Outpatient (CLI) | payer MEDICARE, SELFPAY ==
--- NOTE | 2023-04-18 11:59 | DI.RAD.S_ITS ---
PROCEDURE: XR CERVICAL SPINE 2V OR 3V INDICATIONS: neck and radicular arm pain TECHNIQUE: 3 view(s) of the cervical spine were acquired. COMPARISON: None. FINDINGS: Bones: No fractures or dislocations to the T1 level. The lateral masses of C1 appear intact on the odontoid view. No suspicious bony lesions. Spine degenerative disc disease uncovertebral arthropathy and facet arthropathy. Soft tissues: No prevertebral soft tissue swelling. Partially visualized WEAVER HAND LOOM shunt catheter. IMPRESSION: Multilevel degenerative disc disease. Multilevel facet and uncovertebral arthropathy. No fracture. No acute osseous lesion. If symptoms and/or clinical suspicion for pathology persists, evaluation with MRI should be considered for further assessment. Dictated by: Sobeida Escoto MD, PhD on 04/18/2023 at 13:56 Approved by: Sobeida Escoto MD, PhD on 04/18/2023 at 13:57
== END ==
PROVIDERS: Family Provider Family Medicine; PCP Family Medicine; Referring Provider Family Medicine; Visit Provider Family Medicine
DX: M47.22 Other spondylosis with radiculopathy, cervical region (principal); M50.10 Cervical disc disorder with radiculopathy, unspecified cervical region
CPT/HCPCS: 72040

== ENCOUNTER → 2023-06-01 15:37 | Outpatient (CLI) | payer MEDICARE, SELFPAY ==
[2023-06-01 16:51] LABS: Add Manual Diff / Slide Review NO; Basophils Absolute Auto 100 /uL (0-100); Eosinophils Absolute Auto 100 /uL (0-450); Eosinophils Percent Auto 2.3 % (2-4); Hematocrit 39.8 % (36-46); Hemoglobin 13.4 g/dL (12.0-16.0); Lymphocytes Absolute Auto 900 /uL (1100-4500); Lymphocytes Percent Auto 17.1 % (25-40); Mean Corpuscular HGB Conc 33.6 % (30-36); Mean Corpuscular Hemoglobin 31.8 PG (26-34); Mean Corpuscular Volume 94.6 fL (80-100); Monocytes Absolute Auto 500 /uL (0-900); Monocytes Percent Auto 8.8 % (3-14); Neutrophils Absolute Auto 3900 /uL (1500-7000); Neutrophils Percent Auto 70.8 % (50-75); Platelet Count 127 X10^3/uL (150-400); Red Cell Distribution Width 15.1 % (11.6-14.8); White Blood Cell Count 5.5 X10^3/uL (4.5-11.0)
[2023-06-01 17:24] LABS: Alanine Aminotransferase 27 IU/L (<35); Albumin 4.4 g/dL (3.5-5.0); Albumin Globulin Ratio 1.7 (1.0-2.8); Alkaline Phosphatase 96 U/L (38-126); Aspartate Aminotransferase 32 IU/L (14-36); BUN Creatinine Ratio 43.5 (6-22); Bilirubin Total 1.1 mg/dL (0.2-1.3); Blood Urea Nitrogen 30 mg/dL (7-17); Calcium 9.8 mg/dL (8.4-10.2); Carbon Dioxide 22 mmol/L (22-32); Chloride 107 mmol/L (98-107); Estimated Glomerular Filt Rate > 60 mL/min (>60); Globulin 2.6 g/dL (1.7-4.1); Glucose 97 mg/dL (80-110); HEMOLYSIS < 15 (0-50); Potassium 4.4 mmol/L (3.4-5.1); Sodium 139 mmol/L (137-145)
[2023-06-01 17:56] LABS: TSH w/ Reflex to FT4 2.45 uIU/mL (0.47-4.68)
[2023-06-01 18:12] LABS: Vitamin B12 810 pg/mL (239-931)
== END ==
PROVIDERS: Family Provider Family Medicine; PCP Family Medicine; Referring Provider Family Medicine; Visit Provider Family Medicine
DX: F32.9 Major depressive disorder, single episode, unspecified (principal); M48.00 Spinal stenosis, site unspecified; R26.9 Unspecified abnormalities of gait and mobility; G91.9 Hydrocephalus, unspecified
CPT/HCPCS: 36415; 80053; 82607; 84443; 85025